=== PATIENT | female | born 1955 | race Caucasian/White ===

== ENCOUNTER 2021-08-01 09:51 | Emergency (ER) | payer MEDICARE, OTHER ==
[~2021-08-01] VITALS: Ht 177.8 cm; Wt 91.0 kg
--- NOTE | 2021-08-01 10:22 | PHYS DOC ---
Adult General Chief Complaint Chief Complaint: CHEST PAIN HPI HPI Patient is a 66-year-old female presenting for chest pain. Reports onset was yesterday evening while at rest. Reports pain was sharp, left-sided with mild radiation to contralateral breast. Timing of symptoms has waxed and waned since onset. Reports it was severe pain in nature but self resolved without intervention after 1 minute. Later in the evening, she wanted to see if her pain was musculoskeletal in origin so she got on an exercise bike and after several minutes of physical activity, had recurrence of similar chest pain. She was able to sleep without issue and after waking up this morning she attempted t o get on the exercise bike again and after 3 minutes had recurrence of symptoms prompting her to come in for evaluation. Admits she has numerous comorbid conditions that are well managed in outpatient setting such as anxiety, noninsulin-dependent diabetes, high cholesterol and hypertension. She has no personal history of coronary artery disease but has seen a artist blacksmith in the past with prior echocardiogram, stress test and Holter monitor approximately 5 years prior. On arrival to ER, she has no pain, just feels tired with physical exertion with shortness of breath Review of Systems Review of Systems Fourteen body systems of review of systems have been reviewed. See HPI for pertinent positives and negative responses, other brady all other systems are negative, non-pertinent or non-contributory Physical Exam Physical Exam Constitutional: Well developed, well nourished, no acute distress, non-toxic appearance. HENT: Normocephalic, atraumatic, bilateral external ears normal, oropharynx moist, no oral exudates, nose normal. Eyes: PERRLA, EOMI, conjunctiva normal, no discharge. Neck: Normal range of motion, no tenderness, supple, no stridor. Cardiovascular: Heart rate regular per monitor Lungs & Thorax: No respiratory distress or accessory muscle use, bilateral chest rise Abdomen: Abdomen soft, non-tender, bowel sounds present in all quadrants, no guarding or rebound, nonacute abdomen. Skin: Warm, dry, no erythema, no rash. Back: No tenderness, no CVA tenderness. Extremities: No tenderness, no cyanosis, no clubbing, ROM intact, no edema. Neurologic: Alert and oriented X 3, grossly normal motor & sensory function, no focal deficits noted. Psychologic: Affect normal, judgement normal, mood normal. Current Patient Data Vital Signs Vital Signs Date Time Temp Pulse Resp B/P (MAP) Pulse Ox O2 Delivery O2 Flow Rate FiO2 08/01/21 10:10 99.0 86 20 156/96 (116) 99 Room Air Vital Signs Date Time Temp Pulse Resp B/P (MAP) Pulse Ox O2 Delivery O2 Flow Rate FiO2 08/01/21 11:37 69 20 169/71 (103) 96 Room Air 08/01/21 10:10 99.0 Lab Results Laboratory Tests Test 08/01/21 10:30 08/01/21 10:32 D-Dimer (Nicolasa) 0.50 mg/L White Blood Count 5.7 x10^3/uL Red Blood Count 4.76 x10^6/uL Hemoglobin 14.2 g/dL Hematocrit 42.3 % Mean Corpuscular Volume 89 fL Mean Corpuscular Hemoglobin 30 pg Mean Corpuscular Hemoglobin Concent 34 g/dL Red Cell Distribution Width 14.0 % Platelet Count 243 x10^3/uL Neutrophils (%) (Auto) 47 % Lymphocytes (%) (Auto) 44 % Monocytes (%) (Auto) 7 % Eosinophils (%) (Auto) 2 % Basophils (%) (Auto) 1 % Neutrophils # (Auto) 2.7 x10^3uL Lymphocytes # (Auto) 2.5 x10^3/uL Monocytes # (Auto) 0.4 x10^3/uL Eosinophils # (Auto) 0.1 x10^3/uL Basophils # (Auto) 0.0 x10^3/uL Sodium Level 139 mmol/L Potassium Level 3.7 mmol/L Chloride Level 102 mmol/L Carbon Dioxide Level 27 mmol/L Anion Gap 10 Blood Urea Nitrogen 23 mg/dL Creatinine 1.1 mg/dL Estimated GFR (Cockcroft-Gault) 49.5 Glucose Level 125 mg/dL Calcium Level 9.6 mg/dL Troponin I High Sensitivity 6 ng/L [id number] Natriuretic Peptide 24 pg/mL Current Medications Medications (Trade) Dose Ordered Sig/Niels Route PRN Reason Start Time Stop Time Status Last Admin Dose Admin Aspirin (Aspirin Chewable) 324 mg 1X ONCE PO 08/01/21 10:30 08/01/21 10:31 DC 08/01/21 10:55 EKG EKG EKG ordered and interpreted by myself at 1025 hrs. as sinus rhythm at 80 bpm, prolonged QRS at 148 otherwise unremarkable intervals, extreme right axis deviation, Radiology/Procedures Radiology/Procedures AP chest. HISTORY: Chest pain AP view was taken of the chest. Lungs are clear. Heart is normal in size. There is no effusion. IMPRESSION: 1. No acute chest disease. Electronically signed by: Oh Delgado MD (08/01/2021 10:42 AM) [id number] Heart Score C/O Chest Pain: Yes HEART Score for Chest Pain: HEART Score for Chest Pain Response (Comments) Value History Moderately Suspicious 1 ECG Nonspecific Repolarizatio 1 Age > 65 2 Risk Factors >3 Risk Factors or Hx CAD 2 Troponin < Normal Limit 0 Total 6 Risk Factors: Risk Factors: DM, Current or recent (<one month) smoker, HTN, HLP, family history of CAD, obesity. Risk Scores: Risk Factors: DM, Current or recent (<one month) smoker, HTN, HLP, family history of CAD, obesity. Course & Med Decision Making Course & Med Decision Making ABCs unremarkable besides hypertension History physical exam and comprehensive ER work-up nonconcerning for any emergent or surgical issues Disclosed most likely diagnosis of stable angina that will likely require further provocative cardiac testing unlikely catheterization. I disclosed and recommended need for cardiac observation but was transparent that wait times for admission given nonemergent need for catheterization will be lengthy I contacted [facility]ology service and spoke with midlevel and subsequent attending physician reviewing EKGs as well decision made to discharge from ER and follow-up in clinic right after ER visit to schedule outpatient testing as indicated. I disclosed all findings with patient and at bedside with good understanding, all questions and concerns addressed prior to ER departure Shelly Disclaimer Dragon Disclaimer This electronic medical record was generated, in whole or in part, using a voice recognition dictation system. Departure Departure: Impression: Primary Impression: Chest pain Disposition: HOME / SELF CARE / HOMELESS Condition: STABLE Referrals: RACHELLE AHGER MD (PCP) CUATE MIKE MD Additional Instructions: You were seen for chest pain. Your workup did not show any acute abnormalities today, but does not indicate that you do not have underlying cardiovascular disease. You do need to follow up with your primary doctor and a artist blacksmith for further evaluation and treatment. As disclosed, your case was reviewed with on-call artist blacksmith who recommended close outpatient follow-up for further provocative cardiac testing. Their contact information is seen above. You sh ould return to the ED if you develop worsening chest pain, shortness of breath, fever, abnormal sweating, leg swelling, or any other new or concerning symptoms. FANNIE DANIELS DO Aug 01, 2021 10:22
[2021-08-01] MEDS ORDERED: ASPIRIN CHEWABLE 81 MG TABLET. PO ONE (10:30)
--- NOTE | 2021-08-01 10:44 | RAD ---
AP chest. HISTORY: Chest pain AP view was taken of the chest. Lungs are clear. Heart is normal in size. There is no effusion. IMPRESSION: 1. No acute chest disease. Electronically signed by: Oh Delgado MD (08/01/2021 10:42 AM) [id number]
[2021-08-01 10:58] LABS: BASO % 1 % (0-3); EOS # 0.1 x10^3/uL (0.0-0.7); EOS % 2 % (0-3); HEMATOCRIT 42.3 % (36.0-47.0); HEMOGLOBIN 14.2 g/dL (12.0-15.5); LYMPH # 2.5 x10^3/uL (1.0-4.8); LYMPH % 44 % (24-48); MEAN CORPUSCULAR HEMOGLOBIN 30 pg (25-35); MEAN CORPUSCULAR HGB CONC 34 g/dL (31-37); MEAN CORPUSCULAR VOLUME 89 fL (79-100); MONO # 0.4 x10^3/uL (0.0-1.1); MONO % 7 % (0-9); NEUT # 2.7 x10^3uL (1.8-7.7); NEUT % 47 % (31-73); PLATELET COUNT 243 x10^3/uL (140-400); RED BLOOD COUNT 4.76 x10^6/uL (3.50-5.40); WHITE BLOOD COUNT 5.7 x10^3/uL (4.0-11.0)
[2021-08-01 11:04] LABS: CALCIUM 9.6 mg/dL (8.5-10.1); CREATININE 1.1 mg/dL (0.6-1.0); GFR 49.5; POTASSIUM 3.7 mmol/L (3.5-5.1)
--- NOTE | 2021-08-01 12:06 | EKG ---
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
--- NOTE | 2021-08-01 12:07 | EKG ---
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
[2021-08-01 13:08] VITALS: BP 157/78
== END 2021-08-01 13:09 | disposition home or self-care (01) ==
LOC: ER 09:51
DX: R07.89 Other chest pain (principal)
CPT/HCPCS: 36415; 71045; 80048; 83880; 84484; 85025; 85379; 93005; 99284; 99285